=== PATIENT | female | born 1960 | race Caucasian/White ===

== ENCOUNTER 2018-02-18 19:46 | Emergency (ER) | payer OTHER ==
--- NOTE | 2018-02-18 21:28 | ED GENERAL ADULT ---
History of Present Illness General Chief Complaint: General Adult Stated Complaint: MED REFILL Source: patient Exam Limitations: no limitations Vital Signs & Intake/Output Vital Signs & Intake/Output Vital Signs Date Time Temp Pulse Resp B/P B/P Pulse O2 O2 Flow FiO2 Mean Ox Delivery Rate 02/18 2145 97.0 84 16 148/86 97 Room Air Allergies Uncoded Allergies: Allergy Other N Med Allergies NKDA Reconcile Medications Benztropine Mesylate 1 MG TABLET 1 TAB PO BID psych Risperidone (Risperdal) 2 MG TABLET 1 TAB PO DAILY psych Triage Note: PT TO TRIAGE FOR MED REFILL OF BENZTROPINE AND RISPERIDONE. PT STATES UNABLE TO GET APPT FOR TWO WEEKS D/T DOCTOR PASSING AWAY. DENIES ANY COMPLAINTS. INFORMED WAITING PERFORMED. Triage Nurses Notes Reviewed? yes Onset: Gradual Duration: day(s): Timing: recent history Severity: moderate HPI: 57-year-old female with history of anxiety presents emergency department requesting medication refill. Patient states she is currently taking benztropine and Risperdal for her anxiety symptoms. Patient was formerly seeing a psychiatrist twice a year for her medications. Patient's specialist recently . Patient has been trying to schedule appointment with a new provider however has been unable to make an appointment thus far. She has been out of her medications for 2 days. She denies suicidal ideation. (Mami Almonte) Past History Travel History Traveled to [place] past 21 day No Medical History Any Pertinent Medical History? see below for history Neurological: NONE EENT: NONE Cardiovascular: NONE Respiratory: NONE Gastrointestinal: NONE Hepatic: NONE Renal: NONE Musculoskeletal: NONE Psychiatric: anxiety Endocrine: NONE Blood Disorders: NONE Cancer(s): NONE HAT RENOVATOR/Reproductive: NONE Surgical History Surgical History: non-contributory Psychosocial History What is your primary language Afghan Tobacco Use: Never used ETOH Use: denies use Family History Hx Contributory? No (Mami Almonte) Review of Systems Review of Systems Constitutional: Reports: no symptoms. EENTM: Reports: no symptoms. Respiratory: Reports: no symptoms. Cardiovascular: Reports: no symptoms. GI: Reports: no symptoms. Genitourinary: Reports: no symptoms. Musculoskeletal: Reports: no symptoms. Skin: Reports: no symptoms. Neurological/Psychological: Reports: see HPI. Hematologic/Endocrine: Reports: no symptoms. Immunologic/Allergic: Reports: no symptoms. All Other Systems: Reviewed and Negative (Mami Almonte) Physical Exam Physical Exam General Appearance: well developed/nourished, no apparent distress, alert, awake Head: atraumatic, normal appearance Eyes: Bilateral: normal appearance. Ears, Nose, Throat: hearing grossly normal Neck: normal inspection, supple, full range of motion Respiratory: no respiratory distress Back: normal inspection, normal range of motion Extremities: normal range of motion Neurologic/Psych: awake, alert, oriented x 3, normal mood/affect Skin: intact, normal color, warm/dry Core Measures ACS in differential dx? No CVA/TIA Diagnosis: No Sepsis Present: No Sepsis Focused Exam Completed? No (Mami Almonte) Progress Differential Diagnoses I considered the following diagnoses in my evaluation of the patient: [ Medication refill, anxiety, depression, suicidal ideation] Plan of Care: Patient was given referral to psychiatrist. Medications are refilled temporarily. Patient has no current complaints other than running out of medication, no need to see crisis team here in the emergency department, no suicidal ideation. The patient agrees with the plan of care. Initial ED EKG: none (Mami Almonte) Departure Departure Disposition: HOME OR SELF CARE Condition: Stable Clinical Impression Primary Impression: Medication refill Referrals: Lucio MARQUEZ,Dena Parra MD,Rod CATHERINE MD,REYNA Stark Unknown (PCP/Family) Additional Instructions: Take medications as prescribed. Follow-up with your psychiatrist as scheduled. Return with worsening symptoms or concerns. Please note that there might be incidental findings in your evaluation that are unrelated to the current emergency department visit. Please notify your primary care doctor about this emergency department visit in order to obtain and review all of the testing performed so that these incidental findings can be monitored as needed. If you had an x-ray performed, please understand that some fractures may not be seen on the initial set of x-rays. If your symptoms persist you might need a repeat set of x-rays to check for such a fracture. If you had a laceration evaluated, please understand that foreign bodies such as glass or wood may not be visible to the naked eye or on plain x-rays. If the wound becomes red, swollen, increasingly more painful or if there is any drainage from the wound, please have it reevaluated by a physician for the possibility of a retained foreign body. If you're unable to follow up as outlined in the discharge instructions please return to the emergency department. Thank you for choosing the [facility] Emergency Department for your care. It was a pleasure to serve you today. Departure Forms: Customer Survey General Discharge Information Prescriptions: Current Visit Scripts Risperidone (Risperdal) 1 TAB PO DAILY #10 TAB Benztropine Mesylate 1 TAB PO BID #20 TAB (Mami Almonte) PA/NEUROLOGY EPILEPSY PHYSICIAN Co-Sign Statement Statement: ED Attending supervision documentation- I saw and evaluated the patient. I have also reviewed all the pertinent lab results and diagnostic results. I agree with the findings and the plan of care as documented in the PA's/NEUROLOGY EPILEPSY PHYSICIAN's documentation. x I have reviewed the ED Record and agree with the PA's/NEUROLOGY EPILEPSY PHYSICIAN's documentation. [] Additions or exceptions (if any) to the PAs/NEUROLOGY EPILEPSY PHYSICIAN's note and plan are summarized below: [] (Nadir MARQUEZ,Tha) Critical Care Note Critical Care Note Critical Care Time: non-applicable (Mami Almonte)
[2018-02-18] MEDS ORDERED: RISPERDAL2 M1 PO (21:36)
[2018-02-18] MEDS ORDERED: BENZTROPINE MESY1 M1 PO (21:36)
[2018-02-18 21:45] VITALS: BP 148/86
== END 2018-02-18 21:46 ==
LOC: ERH 19:46
DX: Z76.0 Encounter for issue of repeat prescription (principal)
CPT/HCPCS: 99281